=== PATIENT | female | born 1950 | race African-American/Black ===

== ENCOUNTER 2017-12-30 19:27 | Emergency (ER) | payer OTHER ==
--- NOTE | 2017-12-30 21:52 | ED ---
Lower Extremity - HPI Summary HPI Summary: 67 female presents to ER with complaints of rectal pain after injury that began yesterday after injury. Patient states she was brought up the stairs when she twisted and fell hitting her feet While at work. States she is able to bear weight and walk however has some discomfort at the left great toe area. Denies any swelling or bruising. Has been icing tingling [id number] pain relievers. States pain. A 10. Thinks she sprained it. No other injuries. Did not hit head and no loss of consciousness. No other complaints at this time. No significant past medical history. Walking makes the pain worse. Rest makes pain better. Denies numbness and tingling. - History of Current Complaint Chief Complaint: EDExtremityLower Stated Complaint: LT FOOT INJURY Time Seen by Provider: 12/30/17 21:03 Hx Obtained From: Patient Mechanism Of Injury: Twisted Onset of Pain: Days - 1 Onset/Duration: Days - 1 Severity Initially: Mild Severity Currently: Mild Pain Intensity: 4 Pain Scale Used: 0-10 Numeric Timing: Constant Location: Is Discrete @ - Left great toe/foot Character Of Pain: Sharp, Aching Associated Signs And Symptoms: Positive: Negative Aggravating Factor(s): Ambulation Alleviating Factor(s): Rest, Elevation, Ice, OTC Meds Able to Bear Weight: Yes - Allergies/Home Medications Allergies/Adverse Reactions: Allergies Allergy/AdvReac Type Severity Reaction Status Date / Time lactose Allergy Abdominal Verified 12/30/17 19:32 Pain Penicillins Allergy Hives Verified 12/30/17 19:32 shellfish derived Allergy Hives Verified 12/30/17 19:32 PMH/Surg Hx/FS Hx/Imm Hx Endocrine/Hematology History: Reports: Hx Thyroid Disease Denies: Hx Diabetes Cardiovascular History: Denies: Hx Hypertension, Hx Pacemaker/ICD History: Denies: Hx Renal Disease Sensory History: Denies: Hx Hearing Aid Psychiatric History: Denies: Hx Panic Disorder - Surgical History Surgery Procedure, Year, and Place: appy age 10. thymus age 11. tonsils age 18 - Immunization History Immunizations Up to Date: Yes Infectious Disease History: No Infectious Disease History: Denies: Traveled Outside the [place] in Last 30 Days - Family History Known Family History: Positive: None - Social History Alcohol Use: Rare Substance Use Type: Reports: None Review of Systems Constitutional: Negative Cardiovascular: Negative Respiratory: Negative Positive: Arthralgia, Myalgia Skin: Negative Neurological: Negative All Other Systems Reviewed And Are Negative: Yes Physical Exam Triage Information Reviewed: Yes Vital Signs On Initial Exam: Initial Vitals Temp Pulse Resp BP Pulse Ox 97.2 F 73 18 121/94 99 12/30/17 19:30 12/30/17 19:30 12/30/17 19:30 12/30/17 19:30 12/30/17 19:30 Vital Signs Reviewed: Yes Appearance: Positive: Well-Appearing, No Pain Distress, Well-Nourished Skin: Positive: Warm, Skin Color Reflects Adequate Perfusion, Dry, Other - No ecchymosis or edema. No obvious deformity. Negative: Cold, Numb, Diaphoretic, Pale, Erythema @ Head/Face: Positive: Normal Head/Face Inspection Eyes: Positive: Normal, EOMI, VICKI, Conjunctiva Clear ENT: Positive: Hearing grossly normal Neck: Positive: Supple, Nontender, No Lymphadenopathy Respiratory/Lung Sounds: Positive: Clear to Auscultation, Breath Sounds Present. Negative: Rales, Rhonchi, Wheezes Cardiovascular: Positive: Normal, RRR, Pulses are Symmetrical in both Upper and Lower Extremities - 2+ pedal. Negative: Murmur, Rub Musculoskeletal: Positive: Strength/ROM Intact, Pain @ - On palpation of left MTP mild, Other - No crepitus. Negative: Limited @, Interruption @, Edema Left , Edema Right Neurological: Positive: Normal, Sensory/Motor Intact, Alert, Oriented to Person Place, Time, Reflexes Intact, NV Bundle Intact Distally, Normal Gait - Favoring right side due to left foot pain Diagnostics - Vital Signs Vital Signs Temp Pulse Resp BP Pulse Ox 12/30/17 21:09 98.5 F 63 18 153/80 100 12/30/17 19:30 97.2 F 73 18 121/94 99 - Laboratory Lab Statement: Any lab studies that have been ordered have been reviewed, and results considered in the medical decision making process. - Radiology left foot Xray Interpretation: No Acute Changes - No acute fracture Radiology Interpretation Completed By: ED Physician - Dr. Dumas Lower Extremity Course/Dx - Course Course Of Treatment: X-ray obtained and negative. Appears to be a left foot/ toe sprain. Rest, ice, elevate and wear ortho shoe. Given Kuldeep wrap for compression. Ibuprofen and Tylenol. Aware worsening signs symptoms watch out for. No other complaints or injuries. No other concerns at this time. Follow- up with primary care provider. - Diagnoses Differential Diagnosis/HQI/PQRI: Positive: Contusion, Fracture (Closed), Sprain , Strain Provider Diagnoses: Sprain of foot, left Discharge - Sign-Out/Discharge Documenting (check all that apply): Patient Departure - Discharge Plan Condition: Good Disposition: HOME Patient Education Materials: Foot Sprain (ED) Referrals: Julieth German NP [Primary Care Provider] - Additional Instructions: make an appointment to follow up with PCP for further evaluation if symptoms persist or worsen as discussed use kuldeep wrap and brace as needed while symptoms persist .in the next 1-3 days. rest, ice and elevate. ibuprofen/tylenol for pain and inflammation, as needed, with food. - Billing Disposition and Condition Condition: GOOD Disposition: Home
[2017-12-30 22:51] VITALS: BP 153/75
--- NOTE | 2017-12-31 07:02 | RAD ---
INDICATION: Left foot pain after tripping COMPARISON: None. TECHNIQUE: 3 views of the left foot were obtained. FINDINGS: The adequately corticated bones are properly aligned. Joint spaces appear maintained. No fracture, dislocation or focal bony abnormality is seen. IMPRESSION: Normal radiograph of the left foot. If the patient's symptoms persist, follow-up imaging is recommended. R0
== END 2017-12-30 22:50 | disposition home or self-care (01) ==
LOC: ED 19:27
DX: S93.602A Unspecified sprain of left foot, initial encounter (principal); X50.1XXA Overexertion from prolonged static or awkward postures, initial encounter; Y93.89 Activity, other specified; Y92.9 Unspecified place or not applicable; Y99.0 Civilian activity done for income or pay; Z88.0 Allergy status to penicillin; Z88.2 Allergy status to sulfonamides
CPT/HCPCS: 99282

== ENCOUNTER 2018-10-25 22:20 | Emergency (ER) | payer OTHER ==
--- NOTE | 2018-10-26 01:16 | ED ---
Lower Extremity - HPI Summary HPI Summary: Patient complains of left ankle pain after twisting it today. Denies any other pain injury or symptoms. Patient ambulatory. - History of Current Complaint Chief Complaint: EDExtremityLower Stated Complaint: LT ANKLE INJURY PER PT Time Seen by Provider: 10/26/18 01:05 Hx Obtained From: Patient Mechanism Of Injury: Twisted Onset of Pain: Immediate Onset/Duration: Hours Severity Initially: Moderate Severity Currently: Moderate Pain Intensity: 6 Pain Scale Used: 0-10 Numeric Timing: Constant Location: Is Discrete @ Character Of Pain: Aching Associated Signs And Symptoms: Positive: Swelling Aggravating Factor(s): Ambulation, Weight Bearing Able to Bear Weight: Yes - Allergies/Home Medications Allergies/Adverse Reactions: Allergies Allergy/AdvReac Type Severity Reaction Status Date / Time lactose Allergy Abdominal Verified 12/30/17 19:32 Pain Penicillins Allergy Hives Verified 12/30/17 19:32 shellfish derived Allergy Hives Verified 12/30/17 19:32 PMH/Surg Hx/FS Hx/Imm Hx Endocrine/Hematology History: Reports: Hx Thyroid Disease Denies: Hx Diabetes Cardiovascular History: Denies: Hx Hypertension, Hx Pacemaker/ICD History: Denies: Hx Renal Disease Sensory History: Denies: Hx Hearing Aid Opthamlomology History: Denies: Hx Legally Blind EENT History: Denies: Hx Deafness Neurological History: Denies: Hx Developmental Delay Psychiatric History: Denies: Hx Panic Disorder - Surgical History Surgery Procedure, Year, and Place: appy age 10. thymus age 11. tonsils age 18 Infectious Disease History: No Infectious Disease History: Denies: Traveled Outside the [place] in Last 30 Days - Family History Known Family History: Positive: None - Social History Alcohol Use: Rare Substance Use Type: Reports: None Smoking Status (MU): Former Smoker Review of Systems Constitutional: Negative Eyes: Negative ENT: Negative Cardiovascular: Negative Respiratory: Negative Gastrointestinal: Negative Genitourinary: Negative Musculoskeletal: Other Skin: Negative Neurological: Negative Psychological: Normal All Other Systems Reviewed And Are Negative: Yes Physical Exam - Summary Physical Exam Summary: Mild swelling left ankle. PMS intact distally. No pain with palpation of foot. calf Soft nontender. No ecchymosis, erythema, deformity noted. Full range of motion motion of left ankle with some mild pain. Triage Information Reviewed: Yes Vital Signs On Initial Exam: Initial Vitals Temp Pulse Resp BP Pulse Ox 98.4 F 70 18 169/86 99 10/25/18 22:26 10/25/18 22:26 10/25/18 22:26 10/25/18 22:26 10/25/18 22:26 Vital Signs Reviewed: Yes Appearance: Positive: Well-Appearing Skin: Positive: Warm Head/Face: Positive: Normal Head/Face Inspection Eyes: Positive: Normal Neck: Positive: Supple Respiratory/Lung Sounds: Positive: Clear to Auscultation Cardiovascular: Positive: Normal Abdomen Description: Positive: Nontender Musculoskeletal: Positive: Normal Neurological: Positive: Normal Psychiatric: Positive: Normal AVPU Assessment: Alert - Bhavik Coma Scale Best Eye Response: 4 - Spontaneous Best Motor Response: 6 - Obeys Commands Best Verbal Response: 5 - Oriented Coma Scale Total: 15 Diagnostics - Vital Signs Vital Signs Temp Pulse Resp BP Pulse Ox 10/26/18 00:47 97.8 F 73 18 166/76 97 10/25/18 22:26 98.4 F 70 18 169/86 99 - Laboratory Lab Statement: Any lab studies that have been ordered have been reviewed, and results considered in the medical decision making process. Lower Extremity Course/Dx - Course Course Of Treatment: Patient complains of left ankle pain after twisting it today. Denies any other pain injury or symptoms. Patient ambulatory. Physical exam:Mild swelling left ankle. PMS intact distally. No pain with palpation of foot. calf Soft nontender. No ecchymosis, erythema, deformity noted. Full range of motion motion of left ankle with some mild pain. Vital signs within normal limits. X-ray negative for fracture. Gel splint administered. Advised patient follow up with orthopedics if symptoms persist. - Diagnoses Provider Diagnoses: Ankle sprain Discharge - Sign-Out/Discharge Documenting (check all that apply): Patient Departure Patient Received Moderate/Deep Sedation with Procedure: No - Discharge Plan Condition: Stable Disposition: HOME Prescriptions: Ibuprofen TAB* [Motrin TAB* 600 MG] 600 mg PO Q6H PRN 5 Days #20 tab PRN Reason: Pain Patient Education Materials: Ankle Sprain (ED), Ankle Stirrup Splint (ED) Forms: *Work Release Referrals: Julieth German NP [Primary Care Provider] - Zina Still MD [Medical Doctor] - Additional Instructions: Weight-bearing as tolerated. Rest, ice and ibuprofen for pain and swelling. If symptoms do not improve in a week follow-up with orthopedics Dr. Still for further evaluation. - Billing Disposition and Condition Condition: STABLE Disposition: Home
[2018-10-26 01:29] VITALS: BP 163/87
== END 2018-10-26 01:28 | disposition home or self-care (01) ==
LOC: ED 22:20
DX: S93.402A Sprain of unspecified ligament of left ankle, initial encounter (principal); X50.1XXA Overexertion from prolonged static or awkward postures, initial encounter; Y92.9 Unspecified place or not applicable; Y99.0 Civilian activity done for income or pay; Z91.011 Allergy to milk products; Z88.0 Allergy status to penicillin; Z91.013 Allergy to seafood; Z87.891 Personal history of nicotine dependence
CPT/HCPCS: 99282